=== PATIENT | male | born 1950 | race Caucasian/White ===

== ENCOUNTER 2020-08-02 21:41 | Emergency (ER) | payer OTHER, MEDICAID ==
[~2020-08-02] VITALS: Ht 175.3 cm; Wt 77.1 kg
[2020-08-02 21:55] VITALS: BP_SYST 141
[2020-08-02] MEDS ORDERED: cloNIDine HCL 0.1 MG TABLET PO ONE (22:00)
[2020-08-02] MEDS ORDERED: EPINEPHrine 1 MG/ML AMP IM ONE (22:00)
[2020-08-02] MEDS ORDERED: FAMOTIDINE 20 MG TABLET PO ONE (22:00)
[2020-08-02] MEDS ORDERED: predniSONE 20 MG TABLET PO ONE (22:00)
[2020-08-02] MEDS ORDERED: predniSONE 20 MG TABLET ONE (22:39)
[2020-08-02] MEDS ORDERED: DIPH25CA83 PO (23:37)
[2020-08-02] MEDS ORDERED: PRED20TA PO (23:37)
[2020-08-03 00:05] VITALS: BP_SYST 111
== END 2020-08-03 00:05 | disposition home or self-care (01) ==
LOC: SED 21:41
DX: T78.40XA Allergy, unspecified, initial encounter (principal); X58.XXXA Exposure to other specified factors, initial encounter
CPT/HCPCS: 96372; 99284; J0171; J7512

== ENCOUNTER 2022-06-04 11:53 | Outpatient (CLI) | payer MEDICARE, MEDICAID ==
[~2022-06-04 11:53] MED LIST: DIPH25CA83 PO; PRED20TA PO
== END 2022-06-04 20:32 | disposition home or self-care (01) ==
LOC: SUS 11:53
PROVIDERS: ATTEND Family Medicine
DX: E04.1 Nontoxic single thyroid nodule (principal); R22.1 Localized swelling, mass and lump, neck
CPT/HCPCS: 76536-TC

== ENCOUNTER 2023-10-14 09:30 | Day surgery (SDC) | payer MEDICARE, MEDICAID ==
[~2023-10-14] VITALS: Ht 172.7 cm; Wt 81.6 kg
[2023-10-14] MEDS ORDERED: BENZOCAINE 20% 0.5mL UD SPRAY MM ONE (14:26)
[2023-10-14] MEDS ORDERED: fentaNYL CITRATE/PF 100 MCG/2 ML AMP ONE (14:27)
[2023-10-14] MEDS ORDERED: MIDAZOLAM HCL 5 MG/5 ML VIAL ONE (14:27)
[2023-10-14] MEDS ORDERED: MEPERIDINE 100 MG INJ. 100 MG/ML VIAL ONE (14:28)
[2023-10-14 14:35] VITALS: O2SAT 99
[2023-10-14 19:25] VITALS: BP_SYST 159; PULSE 76; RESP 18
== END 2023-10-14 15:52 | disposition home or self-care (01) ==
LOC: SDS 09:30 → SMU 09:33 → SDS 15:52
PROVIDERS: ATTEND Internal Medicine
DX: R13.10 Dysphagia, unspecified (principal); K31.89 Other diseases of stomach and duodenum; K29.50 Unspecified chronic gastritis without bleeding; K74.69 Other cirrhosis of liver; K21.9 Gastro-esophageal reflux disease without esophagitis; I10 Essential (primary) hypertension; E03.9 Hypothyroidism, unspecified; M19.90 Unspecified osteoarthritis, unspecified site; Z87.891 Personal history of nicotine dependence; Z79.890 Hormone replacement therapy; Z79.899 Other long term (current) drug therapy; Z86.010 Personal history of colon polyps; Z85.21 Personal history of malignant neoplasm of larynx; Z80.0 Family history of malignant neoplasm of digestive organs
CPT/HCPCS: 43248; 43239; 88305; 88312; 88313; 99152; G0378; J2250; J2175; C1769; J3010